=== PATIENT | male | born 1960 | race Caucasian/White ===

== ENCOUNTER 2018-01-11 13:10 | Emergency (ER) | payer SELFPAY ==
[~2018-01-11] VITALS: Ht 170.2 cm; Wt 77.0 kg
[~2018-01-11 13:10] MED LIST: GUAI100S6 PO; ZITH250T PO
[2018-01-11 13:20] VITALS: BP 159/91; PULSE 84; RESP 16; TEMP 98.9; O2SAT 98
--- NOTE | 2018-01-11 13:39 | PD ---
HPI Chief Complaint: Injury Time Seen by Provider: 13:27 Travel History International Travel<30 days: No Contact w/Intl Traveler<30days: No Traveled to known affect area: No History of Present Illness HPI 57-year-old male patient presents to the ER today, apparently a truss had fell on his head, had loss consciousness, and is currently complaining and neck pain. He denies any vomiting, focal neurological deficits, or any other injuries. Modifying Factors: None Associated Signs & Symptoms: Head injury, also consciousness, neck injury Risk Factors: None PFSH Past Medical History Medical History: Denies Significant Hx Asthma: Yes Diminished Hearing: No Respiratory: Yes (ASTHMA) Tetanus Vaccination: Unknown Influenza Vaccination: No Social History Alcohol Use: Yes (Social) Tobacco Use: No Substance Use: No Allergies-Medications (Allergen,Severity, Reaction): Coded Allergies: No Known Allergies (Unverified Adverse Reaction, Unknown, 01/11/18) Reported Meds & Prescriptions Reported Meds & Active Scripts Active No Active Prescriptions or Reported Medications Review of Systems Except as stated in HPI: all other systems reviewed are Neg Physical Exam Narrative GENERAL: Well-developed middle age white male patient currently in mild distress. Awake and oriented 3. SKIN: Focused skin assessment warm/dry. There is a 2 cm laceration at the scalp apex. HEAD: Atraumatic. Normocephalic. EYES: Pupils equal and round. No scleral icterus. No injection or drainage. ENT: No nasal bleeding or discharge. Mucous membranes pink and moist. NECK: Trachea midline. No JVD. In c-collar. CARDIOVASCULAR: Regular rate and rhythm. No murmur appreciated. RESPIRATORY: No accessory muscle use. Clear to auscultation. Breath sounds equal bilaterally. GASTROINTESTINAL: Abdomen soft, non-tender, nondistended. Hepatic and splenic margins not palpable. MUSCULOSKELETAL: No obvious deformities. No clubbing. No cyanosis. No edema. NEUROLOGICAL: Awake and alert. No obvious cranial nerve deficits. Motor grossly within normal limits. Normal speech. PSYCHIATRIC: Appropriate mood and affect; insight and judgment normal. Data Data Last Documented VS Vital Signs Date Time Temp Pulse Resp B/P (MAP) Pulse Ox O2 Delivery O2 Flow Rate FiO2 01/11/18 14:35 82 14 135/79 (97) 98 Room Air 01/11/18 13:[address] Brain W/O Iv Contrast(Rout) (01/11/18 13:28) Ct Cerv Spine W/O Contrast (01/11/18 13:28) Tetanus/Diphtheria Tox Adult (Tetanus/Di (01/11/18 14:15) Morphine Inj (Morphine Inj) (01/11/18 16:00) Ed Discharge Order (01/11/18 16:01) [facility] Medical Decision Making Medical Screen Exam Complete: Yes Emergency Medical Condition: Yes Medical Record Reviewed: Yes Interpretation(s) Last [address] 01/11/18 1328 Signed Impressions: Service Date/Time: Thursday, January 11, 2018 14:17 - CONCLUSION: Intracranially negative with no acute abnormality. Intact calvarium. Extensive diffuse pansinus disease Benji Apple MD Cervical Spine CT 01/11/18 1328 Signed Impressions: Service Date/Time: Thursday, January 11, 2018 14:17 - CONCLUSION: Acute fracture spinous process C6 and C7. At C6 this is at the posterior. At C7 this extends into the base of the spinous process and into the left lamina without displacement. Extensive degenerative changes in cervical spine additionally appreciated with normal alignment Benji Apple MD Differential Diagnosis Head injury, neck injury: Intracranial injuries versus concussion versus fractures Narrative Course CAT scan the brain is negative for any signs of acute intracranial injuries. CAT scan of the C-spine did show a spinal process fracture of C7 and C6. There is no displacement. Case was discussed with Dr. Gutiérrez who states that the patient can stay in c-collar and follow-up with him in a week. Scalp laceration was stapled by me in the ER. Wound care instructions given. Travon to be taken out in about 10 days. Return for any worsening in pain, signs of infection, or new symptoms as needed. Head injury instructions given. Return for any disorientation, vomiting, worsening headaches. The plan was discussed with him and he states understanding. Diagnosis Primary Impression: Head injury, closed, with brief LOC Additional Impressions: Scalp laceration Closed cervical spine fracture Referrals: Hao Gutiérrez MD Med/Other Pt SpecificInfo: Prescription(s) given Scripts Tramadol (Tramadol) 50 Mg Tab 50 MG PO Q6H Y for PAIN, #10 TAB 0 Refills Prov: Soraya Grover MD 01/11/18 Ibuprofen (Ibuprofen) 600 Mg Tab 600 MG PO Q6H Y for Pain/Inflammation, #20 TAB 0 Refills Prov: Soraya Grover MD 01/11/18 Disposition: 01 DISCHARGE HOME Condition: Stable Soraya Grover MD Jan 11, 2018 13:39
[2018-01-11] MEDS ORDERED: TETANUS/DIPHTHERIA TOXOID ADULT 0.5 ML VIAL IM ONE (14:15)
[2018-01-11 14:35] VITALS: BP 135/79; PULSE 82; RESP 14; O2SAT 98
--- NOTE | 2018-01-11 14:37 | RADRPT ---
EXAM DATE/TIME: 01/11/2018 14:17 [facility] COMPARISON: No previous studies available for comparison. INDICATIONS : Truss fell and hit patient on the head and back of his neck.LOC. RADIATION DOSE: 67.54 CTDIvol (mGy) ; Tabletop CT Head MEDICAL HISTORY : Asthma SURGICAL HISTORY : Orthopedic ENCOUNTER: Initial ACUITY: 1 day PAIN SCALE: 8/10 LOCATION: top of head. TECHNIQUE: Multiple contiguous axial images were obtained of the head. Using automated exposure control and adj ustment of the mA and/or kV according to patient size, radiation dose was kept as low as reasonably a chievable to obtain optimal diagnostic quality images. DICOM format image data is available electro nically for review and comparison. FINDINGS: CEREBRUM: The ventricles are normal for age. No evidence of midline shift, mass lesion, hemorrhage or acute in farction. No extra-axial fluid collections are seen. POSTERIOR FOSSA: The cerebellum and brainstem are intact. The 4th ventricle is midline. The cerebellopontine angle i s unremarkable. EXTRACRANIAL: The visualized portion of the orbits is intact. Extensive sinus disease inclusive of complete opacifi cation right maxillary sinus and bilateral ethmoid air cells as well as the right sphenoid compartmen t. Air-fluid level noted in the left sphenoid compartment. SKULL: The calvaria is intact. No evidence of skull fracture. CONCLUSION: Intracranially negative with no acute abnormality. Intact calvarium. Extensive diffuse pansinus disea se Benji Apple MD on January 11, 2018 at 14:34 Board Certified Radiologist. This report was verified electronically.
--- NOTE | 2018-01-11 14:54 | RADRPT ---
EXAM DATE/TIME: 01/11/2018 14:17 [facility] COMPARISON: No previous studies available for comparison. INDICATIONS : Truss fell and hit patient on the head and back of his neck. RADIATION DOSE: 26.56 CTDIvol (mGy) MEDICAL HISTORY : Asthma SURGICAL HISTORY : orthopedic ENCOUNTER: Initial ACUITY: 1 day PAIN SCALE: 8/10 LOCATION: Bilateral posterior neck TECHNIQUE: Volumetric scanning of the cervical spine was performed. Multiplanar reconstructions in the sagittal, coronal and oblique axial planes were performed. Using automated exposure control and adjustment o f the mA and/or kV according to patient size, radiation dose was kept as low as reasonably achievable to obtain optimal diagnostic quality images. DICOM format image data is available electronically f or review and comparison. FINDINGS: The alignment is normal with multilevel degenerative changes of the cervical spine extensive degenera tive disc disease C3-C6 with circumferential marginal spurring and/or osteophyte disc complexes at mu ltiple levels of encroachment upon the canal. Odontoid is in normal relationship the arch of C1. Uppe r thoracic spine is negative. There are acute fractures of the spinous process of C6 and C7. At C6 this is toward the posterior tip. At the level of C7 this is at the base of the spinous process and extend s into the left lamina without displacement. CONCLUSION: Acute fracture spinous process C6 and C7. At C6 this is at the posterior. At C7 this extends into the base of the spinous process and into the left lamina without displacement. Extensive degenerative changes in cervical spine lidya tionally appreciated with normal alignment Benji Apple MD on January 11, 2018 at 14:46 Board Certified Radiologist. This report was verified electronically.
[2018-01-11] MEDS ORDERED: MORPHINE SULFATE 2 MG/ML INJ IM ONE (16:00)
[2018-01-11] MEDS ORDERED: TRAM50TA PO (16:07)
[2018-01-11] MEDS ORDERED: IBUP-232 PO (16:07)
[2018-01-11 16:15] VITALS: BP 147/92; PULSE 75; RESP 16; O2SAT 98
--- NOTE | 2018-01-11 16:54 | RADRPT ---
EXAM DATE/TIME: 01/11/2018 16:34 [facility] COMPARISON: No previous studies available for comparison. INDICATIONS : Cough, fever MEDICAL HISTORY : None. SURGICAL HISTORY : None. ENCOUNTER: Initial ACUITY: 1 week PAIN SCORE: 0/10 LOCATION: Bilateral chest FINDINGS: A single view of the chest demonstrates the lungs to be symmetrically aerated without evidence of mas s, infiltrate or effusion. The cardiomediastinal contours are unremarkable. Osseous structures are intact. CONCLUSION: The lungs are clear. Otto Hightower MD on January 11, 2018 at 16:52 Board Certified Radiologist. This report was verified electronically.
[2018-01-11] MEDS ORDERED: PRED50 PO (16:59)
[2018-01-11] MEDS ORDERED: ALBU6.7H INH (16:59)
[2018-01-11] MEDS ORDERED: ZITHTAB PO (16:59)
== END 2018-01-11 17:20 | disposition home or self-care (01) ==
LOC: PHED 13:10
DX: S06.9X9A Unspecified intracranial injury with loss of consciousness of unspecified duration, initial encounter (principal); S01.01XA Laceration without foreign body of scalp, initial encounter; S12.601A Unspecified nondisplaced fracture of seventh cervical vertebra, initial encounter for closed fracture; S12.501A Unspecified nondisplaced fracture of sixth cervical vertebra, initial encounter for closed fracture; W19.XXXA Unspecified fall, initial encounter; J45.909 Unspecified asthma, uncomplicated
CPT/HCPCS: 12031; 70450; 71045; 72125; 90471; 90714; 96372; 99284; J2270